=== PATIENT | female | born 1965 ===

== ENCOUNTER 2022-02-18 07:41 | Day surgery (SDC) | payer OTHER ==
[~2022-02-18] VITALS: Ht 175.3 cm; Wt 96.2 kg
[~2022-02-18 07:41] MED LIST: ADULT LOW DOSE81 M1 PO; CLONAZEPAM0.5 MG PO; DIETHYLPROPION75 MG PO; FOSINOPRIL SODI10 MG PO; INDERAL XL120 MG PO; VITAMIN D PO
[2022-02-18] MEDS ORDERED: IBU600 MG PO (10:56)
== END 2022-02-18 16:45 | disposition home or self-care (01) ==
LOC: CIR.AMB 07:41
PROVIDERS: ATTEND Obstetrics & Gynecology Gynecology
DX: N85.01 Benign endometrial hyperplasia (principal); I10 Essential (primary) hypertension; Z79.82 Long term (current) use of aspirin

== ENCOUNTER 2022-06-06 11:15 | Inpatient (IN) | payer OTHER ==
[~2022-06-06] VITALS: Ht 172.7 cm; Wt 92.1 kg
[~2022-06-06 11:15] MED LIST changes: +IBU600 MG PO
[2022-06-10] MEDS ORDERED: OZEMPIC0.25 MG/0. (08:10)
[2022-06-10] MEDS ORDERED: MEGESTROL ACETA20 MG (08:10)
[2022-06-10] MEDS ORDERED: DOXYCYCLINE HY100 MG (08:10)
[2022-06-10] MEDS ORDERED: VITAMIN D3250 MC1 (08:11)
[2022-06-13] MEDS ORDERED: DOCUSATE SODIU100 MG PO (11:33)
[2022-06-13] MEDS ORDERED: Ferro-Plex CAPLET PO (11:33)
[2022-06-13] MEDS ORDERED: SIMETHICONE125 M1 PO (11:33)
[2022-06-13] MEDS ORDERED: OXYC1TAB9 PO (11:33)
== END 2022-06-13 11:39 | disposition home or self-care (01) | DRG 741 ==
LOC: OB/GYN 06-10 05:10 → O/R 06-10 05:10 → OB/GYN 06-10 11:11 → SURG 06-10 11:15 → OB/GYN 06-10 12:19 → SURG 06-10 14:00 → OB/GYN 06-13 11:39
PROVIDERS: ADMIT Obstetrics & Gynecology; ATTEND Obstetrics & Gynecology
PROC: 0UT70ZZ Resection of Bilateral Fallopian Tubes, Open Approach (ICD-10-PCS; 2022-06-10)
PROC: 0UT20ZZ Resection of Bilateral Ovaries, Open Approach (ICD-10-PCS; 2022-06-10)
PROC: 0UT90ZZ Resection of Uterus, Open Approach (ICD-10-PCS; principal; 2022-06-10 14:00)
DX: C54.1 Malignant neoplasm of endometrium (principal); N72 Inflammatory disease of cervix uteri; Z20.822 Contact with and (suspected) exposure to COVID-19; N83.291 Other ovarian cyst, right side; N83.292 Other ovarian cyst, left side